=== PATIENT | male | born 1950 | race Caucasian/White ===

== ENCOUNTER 2022-06-27 07:55 | Day surgery (SDC) | payer MEDICARE ==
[~2022-06-27] VITALS: Ht 182.9 cm; Wt 90.0 kg
[2022-06-27] MEDS ORDERED: MIDAZolam 1 MG/ML 5ML VIAL ONE (08:08)
[2022-06-27] MEDS ORDERED: LIDOcaine Viscous 15ml cup ONE (08:08)
[2022-06-27] MEDS ORDERED: fentaNYL/PF 50MCG/1 ML 2ML syringe ONE (08:08)
[2022-06-27] MEDS ORDERED: LEVO125T8 PO (08:14)
[2022-06-27] MEDS ORDERED: ATOR40TA PO (08:14)
[2022-06-27] MEDS ORDERED: TEST200V33 IM (08:14)
[2022-06-27] MEDS ORDERED: SOTA80TA46 PO (08:14)
[2022-06-27] MEDS ORDERED: FLUT1BLS10 (08:14)
[2022-06-27] MEDS ORDERED: RIVA15TA PO (08:14)
[2022-06-27] MEDS ORDERED: LISI2.5T14 PO (08:14)
[2022-06-27] MEDS ORDERED: ALBU18HF2 INH (08:14)
[2022-06-27 08:15] VITALS: BP 113/66
[2022-06-27 09:17] VITALS: BP 109/59
[2022-06-27 09:27] VITALS: BP 108/63
[2022-06-27 09:37] VITALS: BP 113/63
[2022-06-27 09:47] VITALS: BP 109/61
== END 2022-06-27 10:17 | disposition home or self-care (01) ==
LOC: GI LAB 07:55
PROVIDERS: ATTEND Internal Medicine Gastroenterology
DX: K29.70 Gastritis, unspecified, without bleeding (principal); K44.9 Diaphragmatic hernia without obstruction or gangrene; Z87.01 Personal history of pneumonia (recurrent); Z79.899 Other long term (current) drug therapy; Z98.890 Other specified postprocedural states
CPT/HCPCS: 43239; 43450; G0500; J2250; J3010; J7030; Z7512; 88305; 99152; A4620